=== PATIENT | female | born 1955 | race Caucasian/White ===

== ENCOUNTER 2017-04-07 11:06 | Emergency (ER) | payer OTHER ==
[~2017-04-07] VITALS: Wt 90.0 kg
[2017-04-07] MEDS ORDERED: KETOROLAC 30 MG INJ IM STA (11:32)
[2017-04-07 11:55] LABS: URINE BLOOD (Dip) POC Negative (NEGATIVE)
--- NOTE | 2017-04-07 12:29 | ERD ---
ER Documentation Chief Complaint Date/Time DATE: 04/07/17 TIME: 12:27 Chief Complaint LOW BACK PAIN NON TRAUMATIC. LEFT SIDE BODY PAIN NO TRAUMA. NO DEFICIT HPI This 7-year-old female presents emergency department today complaining of low back pain for the past 4 days. States she has some leg pain. States that she took Tylenol yesterday. Denies any trauma, fevers or chills, dysuria. Denies any loss of bowel or bladder control. Denies any history of back pain in the past. ROS All systems reviewed and are negative except as per history of present illness. Medications Home Meds Active Scripts Cyclobenzaprine Hcl* (Cyclobenzaprine Hcl*) 10 Mg Tablet, 10 MG PO QHS, #7 TAB Prov:CONSUELO DAILEY PA-C 04/07/17 Naproxen* (Naprosyn*) 500 Mg Tablet, 500 MG PO BID Y for PAIN AND/OR INFLAMMATION, #30 TAB Prov:CONSUELO DAILEY PA-C 04/07/17 Tramadol HCl (Tramadol HCl) 50 Mg Tablet, 50 MG PO Q4 Y for PAIN, #20 TAB Prov:CONSUELO DAILEY PA-C 04/07/17 Allergies Allergies: Coded Allergies: No Known Allergy (Unverified , 04/07/17) PMhx/Soc History of Surgery: No Anesthesia Reaction: No Hx Respiratory Disorders: No Hx Cardiac Disorders: Yes (HTN) Hx Psychiatric Problems: No Hx Miscellaneous Medical Probl: No Hx Alcohol Use: No Hx Substance Use: No Hx Tobacco Use: No Smoking Status: Never smoker Physical Exam Vitals Vital Signs Date Time Temp Pulse Resp B/P Pulse Ox O2 Delivery O2 Flow Rate FiO2 04/07/17 11:15 98.6 68 20 170/81 98 Physical Exam Const: Sitting in wheelchair, mild distress Head: Atraumatic Eyes: Normal Conjunctiva ENT: Normal External Ears, Nose and Mouth. Neck: Full range of motion..~ No meningismus. Resp: Clear to auscultation bilaterally Cardio: Regular rate and rhythm, no murmurs Abd: Soft, non tender, non distended. Normal bowel sounds Skin: No petechiae or rashes Back: Lumbar spine midline tenderness and right-sided paraspinal tenderness. Pain with straight leg raise. Pulses 2+. Distal neurovascularly intact Ext: No cyanosis, or edema Neur: Awake and alert Psych: Normal Mood and Affect Results 24 hrs Laboratory Tests Test 04/07/17 12:00 Bedside Urine pH (LAB) 6.0 Bedside Urine Protein (LAB) 1+ Bedside Urine Glucose (UA) Negative Bedside Urine Ketones (LAB) Negative Bedside Urine Blood Negative Bedside Urine Nitrite (LAB) Negative Bedside Urine Leukocyte Esterase (L Negative Current Medications Medications (Trade) Dose Ordered Sig/Licha Route PRN Reason Start Time Stop Time Status Last Admin Dose Admin Ketorolac Tromethamine (Toradol) 30 mg ONCE STAT IM 04/07/17 11:32 04/07/17 11:33 DC 04/07/17 11:39 DIAGNOSTIC IMAGING REPORT Patient: KASSY SMITH : 03/24/1995 Age: 22 Sex: F MR #: [id number] DOS: 04/07/17 0107 Ordering MD: THERESA OSWALD PA-C Location: [facility] Room/Bed: PROCEDURE: US OB. CLINICAL INDICATION: , vaginal bleeding. TECHNIQUE: Multiple sonographic images of the pelvis were obtained. Transabdominal views of the pelvis are available for review. The images were reviewed on a PACS workstation. COMPARISON: No prior studies are available for comparison. FINDINGS: DIAGNOSTIC IMAGING REPORT Patient: JANAY HURT : 1955 Age: 61 Sex: F MR #: [id number] DOS: 04/07/17 0000 Ordering MD: CONSUELO DAILEY PA-C Location: [facility] Room/Bed: PROCEDURE: XR Lumbar Spine. CLINICAL INDICATION: Lower back pain. Radicular symptoms. TECHNIQUE: X-ray of the lumbar spine were performed including AP, lateral, and coned L5-S1 views was performed. COMPARISON: No prior studies are available for comparison. FINDINGS: SEGMENTATION: There are 5 non-rib bearing lumbar vertebral bodies. LORDOSIS: Within normal limits. VERTEBRAL BODY HEIGHTS: Maintained without evidence of compression fracture. ALLIGNMENT: There is normal alignment. DISCS: The discs are normal in height. OSSEOUS STRUCTURES: There is no destructive osseous lesion. SACRUM: The bilateral sacroiliac joints are intact. IMPRESSION: No evidence of compression fracture. Further findings as detailed above. RPTAT: PP .Garfield Martinez MD, MD Date Time Electronically viewed and signed by .Garfield Martinez MD, MD on 04/07/2017 13:51 .F/ CC: CONSUELO DAILEY PA-C Procedures/MDM This is a 61 year-old female presents to the emergency department today complaining of low back pain for the past 4 days. Patient does have some radicular symptoms and therefore did obtain images as well as a UA UA is negative for infection Lumbar spine images show 5 [id number] lumbar vertebral bodies. Vertebral body heights are maintained without evidence of compression fracture. Disc spaces are normal in height. There is no acute fracture dislocation. Patient symptoms at this time is consistent with acute back pain likely musculoskeletal. She is afebrile and otherwise well-appearing. She has no loss of bowel or bladder control. Low suspicion for cauda equina or abscess. Low suspicion for pyelonephritis or nephrolithiasis given negative UA. Patient was given Toradol here in the emergency department. She will begin a prescription for tramadol, Naprosyn and Flexeril for home. At this time the patient is stable for discharge and outpatient management. Patient should follow up with their PCP in the next 1-2 days. They may return to the emergency department sooner for any persistent or worsening of symptoms. Patient understood and agreed with the plan. Departure Diagnosis: Primary Impression: Back pain Back pain location: low back pain Chronicity: acute Back pain laterality: right Sciatica presence: with sciatica Sciatica laterality: sciatica of right side Qualified Code: M54.41 - Acute right-sided low back pain with right -sided sciatica Condition: Fair CONSUELO DAILEY PA-C Apr 07, 2017 12:29
--- NOTE | 2017-04-07 13:52 | RADRPT ---
PROCEDURE: XR Lumbar Spine. CLINICAL INDICATION: Lower back pain. Radicular symptoms. TECHNIQUE: X-ray of the lumbar spine were performed including AP, lateral, and coned L5-S1 views w as performed. COMPARISON: No prior studies are available for comparison. FINDINGS: SEGMENTATION: There are 5 non-rib bearing lumbar vertebral bodies. LORDOSIS: Within normal limits. VERTEBRAL BODY HEIGHTS: Maintained without evidence of compression fracture. ALLIGNMENT: There is normal alignment. DISCS: The discs are normal in height. OSSEOUS STRUCTURES: There is no destructive osseous lesion. SACRUM: The bilateral sacroiliac joints are intact. IMPRESSION: No evidence of compression fracture. Further findings as detailed above. RPTAT: PP .Garfield Martinez MD, MD Date Time Electronically viewed and signed by .Garfield Martinez MD, on 04/07/2017 13:51 .F/
[2017-04-07] MEDS ORDERED: NAPR-260 PO (14:03)
[2017-04-07] MEDS ORDERED: TRAM50TA2 PO (14:03)
[2017-04-07] MEDS ORDERED: CYCL-319 PO (14:04)
== END 2017-04-07 14:21 | disposition home or self-care (01) ==
LOC: FTE 11:06
DX: M54.41 Lumbago with sciatica, right side (principal); I10 Essential (primary) hypertension
CPT/HCPCS: 72100; 81003; J1885; 96372